=== PATIENT | female | born 1980 ===

== ENCOUNTER 2017-12-01 11:24 | Inpatient (IN) | payer OTHER ==
[~2017-12-01] VITALS: Ht 180.3 cm; Wt 101.6 kg
[2018-01-03] MEDS ORDERED: PRENATAL TABLE1 EAC1 PO (03:54)
== END 2018-01-05 11:32 | disposition home or self-care (01) | DRG 775 ==
LOC: LDR 01-02 11:23 → SURG-SUITE 01-03 05:32
PROC: 10E0XZZ Delivery of Products of Conception, External Approach (ICD-10-PCS; principal; 2018-01-03)
PROC: 0KQM0ZZ Repair Perineum Muscle, Open Approach (ICD-10-PCS; 2018-01-03)
PROC: 0W8NXZZ Division of Female Perineum, External Approach (ICD-10-PCS; 2018-01-03)
PROC: 10907ZC Drainage of Amniotic Fluid, Therapeutic from Products of Conception, Via Natural or Artificial Opening (ICD-10-PCS; 2018-01-03)
PROC: 4A033R1 Measurement of Arterial Saturation, Peripheral, Percutaneous Approach (ICD-10-PCS; 2018-01-03)
PROC: 4A1HXCZ Monitoring of Products of Conception, Cardiac Rate, External Approach (ICD-10-PCS; 2018-01-03)
DX: O70.1 Second degree perineal laceration during delivery (principal); Z37.0 Single live birth; Z3A.40 40 weeks gestation of pregnancy

== ENCOUNTER 2018-01-02 14:27 | Outpatient (CLI) | payer OTHER ==
[2018-01-03] MEDS ORDERED: PRENATAL TABLE1 EAC1 PO (03:54)
== END 2018-01-02 17:00 | disposition home or self-care (01) ==
LOC: NST 14:27
DX: O48.0 Post-term pregnancy (principal); Z34.83 Encounter for supervision of other normal pregnancy, third trimester